=== PATIENT | female | born 2005 | race African-American/Black ===

== ENCOUNTER 2024-01-29 16:13 | Emergency (ER) | payer OTHER ==
[~2024-01-29] VITALS: Ht 165.1 cm; Wt 63.6 kg
[2024-01-29] MEDS: ACETAMINOPHEN 325 MG TAB PO ONE (16:35)
[2024-01-29 16:42] LABS: BASO # 0.1 10^3/uL (0.0-0.2); BASO % 0.4 % (0.0-1.0); EOS % 0.3 % (0.0-3.0); LYMPH % 17.8 % (24.0-44.0); MEAN CORPUSCULAR HEMOGLOBIN 23.9 pg (27.0-33.0); MEAN CORPUSCULAR HGB CONC 31.3 g/dl (32.0-36.5); MEAN CORPUSCULAR VOLUME 76.4 fl (80.0-96.0); MONO # 0.6 10^3/uL (0.0-0.8); NEUTROPHILS # 8.6 10^3/uL (1.5-8.5); NEUTROPHILS % 76.1 % (36.0-66.0); PLATELET COUNT, AUTOMATED 414 10^3/uL (150-450); RED BLOOD COUNT 4.19 10^6/uL (4.00-5.40); WHITE BLOOD COUNT 11.3 10^3/uL (4.0-10.0)
[2024-01-29 17:06] LABS: BLOOD UREA NITROGEN 6 MG/DL (9-23); CALCIUM LEVEL 8.9 MG/DL (8.5-10.1); CARBON DIOXIDE LEVEL 19 MMOL/L (20-31); CHLORIDE LEVEL 106 MMOL/L (98-107); CREATININE FOR GFR 0.85 MG/DL (0.55-1.30); GLUCOSE, FASTING 94 MG/DL (60-100); POTASSIUM SERUM 3.9 MMOL/L (3.5-5.1); SODIUM LEVEL 134 MMOL/L (136-145)
[2024-01-29 17:09] LABS: HCG, SERUM QUALITATIVE POSITIVE (NEGATIVE)
[2024-01-29 17:44] LABS: HCG, SERUM QUANTITATIVE 100596.1 MIU/ML (<4.2)
[2024-01-29 18:15] VITALS: BP 123/61; TEMP 100.2; O2SAT 100
[2024-01-29 18:31] LABS: Trichomonas vaginalis (AMP) NOT DETECTED (NEGATIVE)
[2024-01-29 18:54] LABS: GC DNA AMPLIFICATION NEGATIVE (NEGATIVE)
== END 2024-01-29 18:39 | disposition home or self-care (01) ==
LOC: EDBD 16:13 → M ED 16:13
DX: O03.9 Complete or unspecified spontaneous abortion without complication (principal); Z3A.01 Less than 8 weeks gestation of pregnancy; O99.331 Smoking (tobacco) complicating pregnancy, first trimester; F17.290 Nicotine dependence, other tobacco product, uncomplicated

== ENCOUNTER 2024-09-09 14:05 | Emergency (ER) | payer OTHER ==
[~2024-09-09] VITALS: Ht 165.1 cm; Wt 69.2 kg
[2024-09-09] MEDS: ACETAMINOPHEN 325 MG TAB PO ONE (16:30)
[2024-09-09 16:59] LABS: BASO % 0.2 % (0.0-1.0); EOS % 0.1 % (0.0-3.0); HEMATOCRIT 30.3 % (36.0-47.0); HEMOGLOBIN 9.4 g/dl (12.0-15.5); LYMPH # 1.8 10^3/uL (1.5-5.0); LYMPH % 12.4 % (24.0-44.0); MEAN CORPUSCULAR HEMOGLOBIN 24.4 pg (27.0-33.0); MEAN CORPUSCULAR VOLUME 78.7 fl (80.0-96.0); MONO # 0.9 10^3/uL (0.0-0.8); MONO % 6.5 % (2.0-8.0); NEUTROPHILS # 11.4 10^3/uL (1.5-8.5); NEUTROPHILS % 80.5 % (36.0-66.0); PLATELET COUNT, AUTOMATED 358 10^3/uL (150-450); RED BLOOD COUNT 3.85 10^6/uL (4.00-5.40); WHITE BLOOD COUNT 14.1 10^3/uL (4.0-10.0)
[2024-09-09 17:30] LABS: HCG, SERUM QUALITATIVE NEGATIVE (NEGATIVE)
[2024-09-09 17:31] LABS: BLOOD UREA NITROGEN 8 MG/DL (9-23); CALCIUM LEVEL 8.3 MG/DL (8.5-10.1); CARBON DIOXIDE LEVEL 25 MMOL/L (20-31); CHLORIDE LEVEL 100 MMOL/L (98-107); CREATININE FOR GFR 0.88 MG/DL (0.55-1.30); GLOMERULAR FILTRATION RATE > 90.0 (>60); GLUCOSE, FASTING 98 MG/DL (60-100); POTASSIUM SERUM 3.6 MMOL/L (3.5-5.1); SODIUM LEVEL 135 MMOL/L (136-145)
[2024-09-09] MEDS: IBUPROFEN 600MG TAB PO ONE (18:00)
[2024-09-09 18:29] LABS: KETONE, URINE AUTO RFX NEGATIVE (NEGATIVE); MUCUS, URINE RFX SMALL (NEGATIVE); NITRITE, URINE AUTO RFX NEGATIVE (NEGATIVE); RBC, URINE AUTO RFX 13 /HPF (0-3); SQUAM EPITHELIAL CELL UR AURFX 34 /HPF (0-6); YEAST LIKE CELL URINE AUTO RFX SMALL
[2024-09-09 18:30] LABS: LEUKOCYTE ESTERASE UR AUTO RFX 3+ (NEGATIVE); WBC, URINE AUTO RFX 45 /HPF (0-3)
[2024-09-09] MEDS ORDERED: CEFD1CAP9 PO (19:38)
[2024-09-09 19:43] VITALS: BP 133/63; TEMP 99.1; O2SAT 100
[2024-09-09] MEDS: cefTRIAXone SOD 1GM VIAL IM ONE (19:53)
[2024-09-09] MEDS: LIDOCAINE 1% SDV 5ML VIAL DILUENT ONE (19:53)
[2024-09-12] MEDS ORDERED: SULF1TAB23 PO (08:03)
== END 2024-09-09 20:13 | disposition home or self-care (01) ==
LOC: M ED 14:05
DX: N10 Acute pyelonephritis (principal); R05.9 Cough, unspecified; R06.02 Shortness of breath; F17.290 Nicotine dependence, other tobacco product, uncomplicated
CPT/HCPCS: 36415; 71045; 80048; 81001; 84703; 85025; 87088; 87186; 87486; 87581; 87633; 87798; 96372; 99283; J0696